=== PATIENT | male | born 1965 | race Caucasian/White ===

== ENCOUNTER 2020-09-01 13:49 | Outpatient (REF) | payer OTHER, SELFPAY | END 2020-09-01 13:50 | disposition home or self-care (01) | LOC: HO.SCI 13:49 | DX: Z13.89 Encounter for screening for other disorder (principal) ==

== ENCOUNTER 2020-09-04 07:51 | Outpatient (REF) | payer OTHER, SELFPAY ==
--- NOTE | ~2020-09-04 | MR_ITS ---
MR BRAIN WITHOUT AND WITH CONTRAST CLINICAL INFORMATION: Cluster headache. COMPARISON: None available. TECHNIQUE: Multiplanar, multisequence MRI of the brain was obtained before and after the intravenous administration of 8 mL Gadavist. FINDINGS: There is no pathologic intracranial enhancement. No parenchymal signal abnormality. There is no hydrocephalus, extra-axial surface collection, or herniation. The major flow voids at the skull base are preserved. There is no acute infarct on diffusion-weighted imaging. There is no intracranial hemorrhage on the gradient recalled echo acquisition. The midline structures are normal. The cerebellar tonsils are normally positioned. The cerebellum and brainstem are normal. The craniocervical junction is normal. Osseous marrow signal intensity is homogenous. The visualized soft tissues are unremarkable. MR/MR head/brain wo/w con IMPRESSION: Unremarkable MRI of the brain.
== END 2020-09-04 07:52 | disposition home or self-care (01) ==
LOC: HO.MRI 07:51
PROVIDERS: Visit Provider Psychiatry & Neurology Neurology
DX: G44.009 Cluster headache syndrome, unspecified, not intractable (principal)
CPT/HCPCS: 70553; A9585

== ENCOUNTER 2020-10-08 02:02 | Emergency (ER) | payer OTHER, SELFPAY ==
--- NOTE | ~2020-10-08 | CT_ITS ---
EXAMINATION: CT ABDOMEN AND PELVIS WITH CONTRAST CLINICAL INFORMATION: Left lower quadrant pain rule out diverticulitis, abscess, perforation. COMPARISON: None TECHNIQUE: Multidetector volumetric images were obtained from the superior aspect of the liver through the pubic symphysis following administration 85 mL of Omnipaque 350 intravenous contrast. Sagittal and coronal reformatted images were obtained on the technologist's workstation. Oral contrast: No This CT examination was performed using dose optimization techniques as appropriate, variously including the following: *Automated exposure control *Adjustment of mA and/or kV according to patient size (this includes techniques or standardized protocols for targeted exams where dose is matched to indication/reason for exam; i.e. extremities or head) *Use of iterative reconstruction technique DLP: 531 mGy-cm FINDINGS: LUNG BASES: The lung bases appear unremarkable. No pleural or pericardial effusion identified. LIVER, GALLBLADDER, AND BILIARY TREE: The liver is normal in size, shape, and attenuation. No focal hepatic lesion or biliary ductal dilatation is present. The gallbladder is unremarkable with no evidence of radiopaque gallstones, gallbladder wall thickening, or obvious pericholecystic inflammatory changes. PANCREAS: Unremarkable. No pancreatic mass or peripancreatic inflammatory change. SPLEEN: Unremarkable. ADRENAL GLANDS: Unremarkable. KIDNEYS AND URETERS: Extrarenal pelves are seen with mild prominence of the upper collecting systems bilaterally. No renal calculi identified. No suspicious mass. Ureters unremarkable. There is some bilateral perinephric stranding present. BLADDER: There is question of some bladder wall thickening however this may be related to its nondistended state. GASTROINTESTINAL TRACT: No dilated loops of large or small bowel are evident. No free air is seen. There is a small amount of free fluid noted about the pelvis. The appendix is visualized and appears unremarkable. There is diverticulosis of the sigmoid colon. There is focal pericolonic inflammatory change present about the region of the proximal sigmoid colon and distal descending colon consistent with acute diverticulitis. No drainable abscess collection is identified. ABDOMINAL WALL: No significant hernia is appreciated. LYMPH NODES: No lymphadenopathy appreciated. VASCULAR: Unremarkable. PELVIC VISCERA: No abnormal pelvic mass identified. There is a small amount free fluid present. OSSEOUS STRUCTURES: No suspicious destructive bony lesions identified. CT/CT abdomen pelvis w con IMPRESSION: Findings consistent with acute diverticulitis without drainable abscess about the junctions of the descending colon and proximal sigmoid colon.
[2020-10-08 02:20] VITALS: BP 164/94; PULSE 74; RESP 20; TEMP 36.9; O2SAT 97; BMI 29.0
[2020-10-08 05:37] VITALS: BP 134/77; PULSE 71; RESP 18; TEMP 36.6; O2SAT 100
[2020-10-08 05:53] LABS: Basophils Percent Auto 0.3 % (0-2); Eosinophils Absolute Auto 0.2 X10*3/uL (0.0-0.4); Eosinophils Percent Auto 1.4 % (0-4); Hematocrit 44.8 % (42-52); Hemoglobin 15.4 g/dl (14.0-18.0); Imm Gran Abs Auto 0.05 X10*3/uL (0.00-0.03); Imm Gran Pct Auto 0.4 % (0.0-0.4); Lymphocytes Absolute Auto 1.7 X10*3/uL (1.2-4.9); Lymphocytes Percent Auto 12.3 % (20-40); Mean Corpuscular HGB Conc 34.4 g/dl (31.0-36.0); Mean Corpuscular Hemoglobin 30.8 pg (27.0-33.0); Mean Corpuscular Volume 89.6 fL (80-98); Mean Platelet Volume 9.7 fL (9.4-12.4); Monocytes Absolute Auto 1.2 X10*3/uL (0.1-1.2); Monocytes Percent Auto 9.2 % (2-11); Neutrophils Absolute Auto 10.3 X10*3/uL (2.0-8.3); Neutrophils Percent Auto 76.4 % (45-73); Platelet Count 339 X10*3/uL (160-400); Red Cell Distribution Width 12.4 % (11.0-16.0); White Blood Count 13.5 X10*3/uL (4.8-10.8)
[2020-10-08 05:54] LABS: MANUAL DIFF FLAG NO
[2020-10-08 05:55] LABS: Appearance Urine CLEAR; Color Urine YELLOW; Glucose Urine UA NEG (NEG); Leukocyte Esterase Urine NEG (NEG); Nitrite Urine NEG (NEG); UACC Culture Trigger NO; Urine Blood NEG (NEG); Urine Ketones NEG (NEG); Urine Protein NEG (NEG-TRACE)
[2020-10-08 06:00] VITALS: BP 134/77; PULSE 71; RESP 18; TEMP 36.6; O2SAT 100
[2020-10-08 06:08] LABS: COVID-19 Test Negative (Negative); IDNOW Serial# 9DD0AD1C
[2020-10-08 06:21] LABS: Alanine Aminotransferase 36 U/L (0-40); Albumin Level 4.6 g/dL (3.5-5.0); Alkaline Phosphatase 69 U/L (39-117); Anion Gap 12 (12-20); Aspartate Amino Transferase 21 U/L (5-37); Bilirubin Total 1.1 mg/dL (0.0-1.0); Blood Urea Nitrogen 12 mg/dL (9-16); Calcium 9.3 mg/dL (8.4-10.2); Carbon Dioxide 28 mmol/L (22-29); Chloride 102 mmol/L (96-108); Creatinine Clr Calc Pharmacy 107.1; Estimated Glomerular Filt Rate > 60; Glucose Random 107 mg/dL (60-115); Lipase 13 U/L (8-78); Potassium 4.1 mmol/L (3.3-5.1); Sodium 138 mmol/L (135-145); Total Protein 7.8 g/dL (6.5-8.0)
--- NOTE | 2020-10-08 06:34 | ED.ABDPAIN ---
HPI - Abdominal Pain General Chief Complaint: Abdominal Pain Stated Complaint: stomach pains, abd pain Time Seen by Provider: 10/08/20 06:13 Source: patient Mode of arrival: ambulatory Limitations: no limitations History of Present Illness HPI narrative: 55-year-old male who presents emergency department for evaluation of left lower quadrant abdominal pain. Patient states the pain started yesterday and came on gradually. He states the pain is a constant, sharp pain which is 8/10 at its worst. The patient denied associated nausea, vomiting, fever, frequency, urgency or change in his bowel movements. Patient states that he has had similar pain in the past when he had diverticulitis. He states that he has had diverticulitis at least 3 times as required hospitalization once. The patient has had no abdominal surgeries. Related Data Allergies Allergy/AdvReac Type Severity Reaction Status Date / Time No Known Allergies Allergy Verified 10/08/20 02:25 Review of Systems Review of Systems Yes all other systems are reviewed and are negative Physical Exam Vital Signs: Vital Signs: Last Vital Signs Temp 97.8 F 10/08/20 06:00 Pulse 71 10/08/20 06:00 Resp 18 10/08/20 06:00 BP 134/77 10/08/20 06:00 Pulse Ox 100 10/08/20 06:00 Body Mass Index 29.0 Const: General: cooperative and healthy appearing Orientation/consciousness: oriented to person and oriented to place Limitations: no limitations HENMT: Head: Yes normal to inspection, Yes normocephalic and Yes atraumatic Ears: external ears normal General nose exam: Normal external nose present Face and sinus: Yes normal facial exam Mouth: Normal oral and palatal mucosa present Throat: Yes posterior oropharynx normal Eyes: Periorbital: periorbital findings normal Eyelids: Yes eyelids normal Conjunctivae: conjunctivae normal Sclerae: sclerae normal Corneas: corneas normal Pupils: Equal, round and reactive pupils present Direct Ophthalmoscopy: normal light reflex Neck: Neck: Yes full ROM, Yes no lymphadenopathy, Yes no meningeal signs, Yes trachea midline and Yes supple Chest: Chest palpation & inspection: normal inspection of the chest and normal palpation of entire chest wall Resp: Effort & Inspection: normal respiratory effort and able to speak in complete sentences Auscultation: clear to auscultation bilaterally Cardio: Rate: regular rate Rhythm: regular rhythm Heart sounds: S1 normal heart sound present, S2 normal heart sound present and no murmurs GI: Inspection: Yes normal to inspection Palpation (GI): Soft to palpation, Tenderness to palpation present (GI) in the LLQ (Moderate to severe), Guarding due to palpation present (GI) in the LLQ, not rigid and No hepatosplenomegaly present : General: Yes no CVA tenderness Back/Spine/Pelvis: Back: no CVA tenderness Cervical Spine: normal cervical lordosis Thoracic/Lumbar Spine: thoracic and lumbar spine normal to inspection Skin: Lesions: no lesions Rashes: no rashes Wounds: no wounds Neuro: General: oriented to person, oriented to place and no meningeal signs Cranial nerves: Yes CN's II-XII intact bilaterally and Yes Equal, round and reactive pupils present Cognition (Neuro): normal cognition Motor exam (neuro): 5/5 motor strength present throughout Extrem: General: Yes normal to inspection and Yes full ROM Psych: Appearance: well kempt Mental Status: mental status grossly normal Speech and movement: Normal speech and movement present Affect: normal affect Attitude: cooperative Thought process: Normal thought process present Thought content: Normal thought content present Course Course Course Narrative: 55-year-old male with history of diverticulitis who presents emergency department for evaluation of 24 hours of left lower quadrant pain. Physical examination did reveal significant left lower quadrant tenderness with voluntary guarding. He laboratory evaluation was ordered. CT scan of the abdomen pelvis with IV contrast will be obtained. I also ordered Patient's pain was treated with Toradol 30 mg IV, morphine 4 mg IV and Zofran 4 mg IV. I also ordered normal saline x1 L. 0737: Patient's laboratory evaluation did reveal an elevated white blood count [id number] scan of the abdomen pelvis with IV contrast is pending. At the end of my shift, at 7:30 a.m., patient's care was turned over to my colleague, Dr. Niru Quintanilla. MDM - Abdominal Pain Lab Data Result diagrams: 10/08/20 05:48 10/08/20 05:48 Labs: Lab Results 10/08/20 10/08/20 10/08/20 Range/Units 05:47 05:48 05:48 WBC 13.5 H (4.8-10.8) X10*3/uL RBC 5.00 (4.60-5.80) X10*6/uL Hgb 15.4 (14.0-18.0) g/dl Hct 44.8 (42-52) % MCV 89.6 (80-98) fL MCH 30.8 (27.0-33.0) pg MCHC 34.4 (31.0-36.0) g/dl RDW 12.4 (11.0-16.0) % Plt Count 339 (160-400) X10*3/uL MPV 9.7 (9.4-12.4) fL Immature Gran % (Auto) 0.4 (0.0-0.4) % Neut % (Auto) 76.4 H (45-73) % Lymph % (Auto) 12.3 L (20-40) % [place] % (Auto) 9.2 (2-11) % Eos % (Auto) 1.4 (0-4) % Baso % (Auto) 0.3 (0-2) % Lymph # (Auto) 1.7 (1.2-4.9) X10*3/uL [place] # (Auto) 1.2 (0.1-1.2) X10*3/uL Eos # (Auto) 0.2 (0.0-0.4) X10*3/uL Baso # (Auto) 0.0 (0.0-0.2) X10*3/uL Abs Immat Gran (auto) 0.05 H (0.00-0.03) X10*3/uL Absolute Neuts (auto) 10.3 H (2.0-8.3) X10*3/uL Absolute Nucleated RBC 0.000 (0.0-0.012) X10*3/uL Nucleated RBC % (auto) 0.0 (0.0-0.2) /100WBC Hold Blue Top SEE NOTE Sodium (135-145) mmol/L Potassium (3.3-5.1) mmol/L Chloride (96-108) mmol/L Carbon Dioxide (22-29) mmol/L Anion Gap (12-20) BUN (9-16) mg/dL Creatinine (0.5-1.4) mg/dL Estim Creat Clear Calc Estimated GFR Random Glucose (60-115) mg/dL Calcium (8.4-10.2) mg/dL Total Bilirubin (0.0-1.0) mg/dL AST (5-37) U/L ALT (0-40) U/L Alkaline Phosphatase (39-117) U/L Total Protein (6.5-8.0) g/dL Albumin (3.5-5.0) g/dL Lipase (8-78) U/L Urine Color YELLOW Urine Appearance CLEAR Urine pH 6.0 (5.0-8.0) Ur Specific [place] 1.020 (1.005-1.025) Urine Protein NEG (NEG-TRACE) MG/DL Urine Glucose (UA) NEG (NEG) MG/DL Urine Ketones NEG (NEG) MG/DL Urine Blood NEG (NEG) Urine Nitrite NEG (NEG) Ur Leukocyte Esterase NEG (NEG) COVID-19 ([facility]) (Negative) COVID-19 Clin Com 10/08/20 10/08/20 Range/Units 05:48 05:48 WBC (4.8-10.8) X10*3/uL RBC (4.60-5.80) X10*6/uL Hgb (14.0-18.0) g/dl Hct (42-52) % MCV (80-98) fL MCH (27.0-33.0) pg MCHC (31.0-36.0) g/dl RDW (11.0-16.0) % Plt Count (160-400) X10*3/uL MPV (9.4-12.4) fL Immature Gran % (Auto) (0.0-0.4) % Neut % (Auto) (45-73) % Lymph % (Auto) (20-40) % [place] % (Auto) (2-11) % Eos % (Auto) (0-4) % Baso % (Auto) (0-2) % Lymph # (Auto) (1.2-4.9) X10*3/uL [place] # (Auto) (0.1-1.2) X10*3/uL Eos # (Auto) (0.0-0.4) X10*3/uL Baso # (Auto) (0.0-0.2) X10*3/uL Abs Immat Gran (auto) (0.00-0.03) X10*3/uL Absolute Neuts (auto) (2.0-8.3) X10*3/uL Absolute Nucleated RBC (0.0-0.012) X10*3/uL Nucleated RBC % (auto) (0.0-0.2) /100WBC Hold Blue Top Sodium 138 (135-145) mmol/L Potassium 4.1 (3.3-5.1) mmol/L Chloride 102 (96-108) mmol/L Carbon Dioxide 28 (22-29) mmol/L Anion Gap 12 (12-20) BUN 12 (9-16) mg/dL Creatinine 0.79 (0.5-1.4) mg/dL Estim Creat Clear Calc 107.1 Estimated GFR > 60 Random Glucose 107 (60-115) mg/dL Calcium 9.3 (8.4-10.2) mg/dL Total Bilirubin 1.1 H (0.0-1.0) mg/dL AST 21 (5-37) U/L ALT 36 (0-40) U/L Alkaline Phosphatase 69 (39-117) U/L Total Protein 7.8 (6.5-8.0) g/dL Albumin 4.6 (3.5-5.0) g/dL Lipase 13 (8-78) U/L Urine Color Urine Appearance Urine pH (5.0-8.0) Ur Specific [place] (1.005-1.025) Urine Protein (NEG-TRACE) MG/DL Urine Glucose (UA) (NEG) MG/DL Urine Ketones (NEG) MG/DL Urine Blood (NEG) Urine Nitrite (NEG) Ur Leukocyte Esterase (NEG) COVID-19 ([facility]) Negative (Negative) COVID-19 Clin Com See Note [facility] Past Medical History [facility] Narrative: Past medical history: Diverticulitis x3 episodes, cluster headaches after a recent tooth extraction taking verapamil for pain. Past surgical history: None. Social history: The patient denies tobacco use. The patient drinks 4-5 beers per day. Patient denies drug use. Medical History Diverticulitis Diverticulosis Social History Social History Alcohol intake: current Alcohol intake frequency: 0-2 drinks per day Alcohol type: beer Patient Tobacco Use Status: Former Tobacco user Smoked in Last 30 Days: No Use of substances other than those prescribed or required for medical reasons: No Advance Directives: No Advance Directives Information Provided: No
[2020-10-08] MEDS: ondansetron HCL 4 MG/2 ML VIAL IVPUSH (06:42)
[2020-10-08] MEDS: Ketorolac Tromethamine 15 MG/ML VIAL 30 MG IV (06:43)
[2020-10-08] MEDS: Piperacillin Sodium/Tazobactam 4.5 GM in 0.9 % Sodium Chloride 100 ML IV (06:44)
[2020-10-08] MEDS: Morphine Sulfate 4 MG/ML CARTRIDGE IVPUSH ×2 (06:48→08:15)
[2020-10-08] MEDS: 0.9 % Sodium Chloride 1,000 ML 999 ML IV (06:48)
[2020-10-08] MEDS: iohexoL 350 MG/ML 100 ML INFUS..BTL 85 ML IV (07:48)
[2020-10-08 08:00] VITALS: BP 114/74; PULSE 66; RESP 18; TEMP 36.3; O2SAT 97
--- NOTE | 2020-10-08 08:54 | PHA.MEDREC ---
Pharmacy Consult ? Medication Reconciliation Pharmacy has completed the medication reconciliation. There are no remarkable issue for provider's attention. Violet Freeman, TaliaD
== END 2020-10-08 09:22 | disposition home or self-care (01) ==
PROVIDERS: Emergency Provider Emergency Medicine
DX: K57.32 Diverticulitis of large intestine without perforation or abscess without bleeding (principal); R10.32 Left lower quadrant pain; Z20.822 Contact with and (suspected) exposure to COVID-19
CPT/HCPCS: 36415; 74177; 80053; 81003; 83690; 85025; 87040; 87635; 96361; 96365; 96375; 96376; 99285; J1885; J2270; J2405; J2543; Q9967

== ENCOUNTER 2024-02-24 09:10 | Outpatient (AMB) | payer OTHER, SELFPAY ==
--- NOTE | 2024-02-24 09:23 | MHC.OFFWIV ---
Intake Vital Signs 02/24/24 09:24 02/24/24 09:49 Height 5 ft 6 in Weight 175 lb BMI 28.2 BP 150/92 H 148/84 H Blood Pressure Location Lt brachial Rt brachial Position Sitting Sitting Pulse 74 Pulse Source Pulse Oximeter Temp 97.6 F Temp Source Oral Pulse Oximetry (%) 98 Oxygen Delivery Method Room Air Intake Visit Reasons: HEALTH COMPANION- Tick bite Intake Note: Pt is here today c/o tick bite Rt buttock noticed on monday Patient Tobacco Use Status: Former Tobacco user Allergies No Known Allergies Allergy (Verified 02/24/24 09:44) Medication List - Last Reconciled 02/24/24 by Kylee Cummings, SPONSORSHIP MANAGER-BC fluoxetine 40 mg PO DAILY meloxicam 15 mg PO DAILY omeprazole 20 mg PO DAILY HPI HPI Comments History of Present Illness Details 58-year-old male here today with complaints of a tick bite. Reports that he is in working in the [employer] recently on on Monday he felt a pimple like area in the back of his right buttocks. He picked up the area and found it to be a very small tick. Unsure if he has remove the whole thing or not. Otherwise he does feel well. In other regards his blood pressure was elevated on intake. It remains elevated on recheck. He is not currently on any antihypertensive medications. His primary care is John Davis at [place] Unsure of last Tdap Exam Awake alert NAD BP recheck 148/84 Posterior right buttocks scabbed area, 2 mm, no retained tick, no erythema migrans, no drainage Plan Tdap today Doxy 200mg x 1 educated on signs and symptoms of tick-borne illness to monitor for and to report to his primary care provider. Asked him follow up with his primary care provider regarding the elevated blood pressure. This note is constructed using voice recognition software. While every effort has been made to ensure accuracy in route vending machine servicer, still errors may have been included Sometimes, these errors may affect the content or meaning of the given sentence . Total time spent caring for the patient today was 30 minutes. This includes time spent before the visit reviewing the chart, time spent during the visit, and time spent after the visit on documentation [facility] Medical History Diverticulitis Diverticulosis Social History Alcohol intake: current Alcohol intake frequency: 0-2 drinks per day Alcohol type: beer Patient Tobacco Use Status: Former Tobacco user Physical Exam Vital Signs: Last Vital Signs Temp 97.6 F 02/24/24 09:24 Pulse 74 02/24/24 09:24 BP 148/84 H 02/24/24 09:49 Pulse Ox 98 02/24/24 09:24 Oxygen Delivery Method Room Air 02/24/24 09:24 BMI result Body Mass Index 28.2 Immunizations Boostrix Tdap 2.5 Lf unit-8 mcg-5 Lf/0.5 mL intramuscular syringe Performing Provider: JACKLYN Ellis Performing Location[place] [facility] [place] [facility] Administered by: Shelby Ibrahim CMA on 02/24/24 10:08 Dose Route Admin Location Dispensed Lot Number Expiration Date [facility]ist 0.5 mL IM Right Deltoid 0.5 mL [id number] 01/12/25 98868-352-90 [place] VIS Given Date VIS Provided VIS Publication Date 02/24/24 Single Vaccine 20 Eligibility Eligibility Date Funding Source Not [facility] Eligible 02/24/24 Private Assessment & Plan Assessment & Plan (1) Tick bite of buttock: Code(s): S30.860A - Insect bite (nonvenomous) of lower back and pelvis, initial encounter; W57.XXXA - Bitten or stung by nonvenomous insect and other nonvenomous arthropods, initial encounter Qualifiers: Encounter type: initial encounter Qualified Code(s): S30.860A - Insect bite (nonvenomous) of lower back and pelvis, initial encounter; W57.XXXA - Bitten or stung by nonvenomous insect and other nonvenomous arthropods, initial encounter Plan: . (2) Elevated blood pressure reading: Code(s): R03.0 - Elevated blood-pressure reading, without diagnosis of hypertension Plan: . (3) Need for Tdap vaccination: Code(s): Z23 - Encounter for immunization Plan: . Orders: Orders TDaP Immunization Today Z23 - Encounter for immunization Medications: New doxycycline hyclate 200 mg (2 x 100 mg) PO DAILY 2 caps 0RF 1 day Boostrix Tdap (diphth,pertus(acell),tetanus) 0.5 mL IM ONCE 0.5 mL 0RF NS Z23 - Encounter for immunization Discontinued amoxicillin-pot clavulanate 875-125 mg (Augmentin) Discontinued Reason: Patient Completed Course 1 tab PO BID 10 tabs 0RF ondansetron Discontinued Reason: Patient no longer taking 4 mg PO Q8H PRN 20 tabs 0RF nausea and vomiting oxycodone diverticulitis Discontinued Reason: Patient no longer taking 10 mg PO Q6H PRN 20 tabs 0RF pain Coding Level of Care Code Est Pt Level 4 (05479) Diagnoses Tick bite of buttock, initial encounter S30.860A; W57.XXXA Encounter type: initial encounter Elevated blood pressure reading R03.0 Need for Tdap vaccination Z23
[2024-02-24 09:24] VITALS: BP 150/92; PULSE 74; TEMP 36.4; O2SAT 98; BMI 28.2
[2024-02-24 09:49] VITALS: BP 148/84
== END 2024-02-24 10:10 | disposition home or self-care (01) ==
PROVIDERS: PCP Physician Assistant Medical; Visit Provider Nurse Practitioner Family
DX: S30.860A Insect bite (nonvenomous) of lower back and pelvis, initial encounter (principal); W57.XXXA Bitten or stung by nonvenomous insect and other nonvenomous arthropods, initial encounter; R03.0 Elevated blood-pressure reading, without diagnosis of hypertension; Z23 Encounter for immunization

== ENCOUNTER → 2024-02-24 09:10 | Outpatient (BNVA) | payer OTHER, SELFPAY | PROVIDERS: PCP Physician Assistant Medical | DX: S30.860A Insect bite (nonvenomous) of lower back and pelvis, initial encounter (principal); W57.XXXA Bitten or stung by nonvenomous insect and other nonvenomous arthropods, initial encounter; R03.0 Elevated blood-pressure reading, without diagnosis of hypertension; Z23 Encounter for immunization | CPT/HCPCS: 90471; 90715 ==